=== PATIENT | female | born 1945 | race Caucasian/White ===

== ENCOUNTER → 2017-08-27 | Outpatient (CLI) | payer MEDICARE, OTHER | LOC: LAB SHORT 11:09 → PLD 11:09 | DX: L82.0 Inflamed seborrheic keratosis (principal) | CPT/HCPCS: 88305 ==

== ENCOUNTER 2018-07-22 11:44 | Day surgery (SDC) | payer MEDICARE, OTHER ==
[~2018-07-22] VITALS: Ht 165.1 cm; Wt 66.3 kg
--- NOTE | 2018-07-22 16:05 | NUR ---
07/22/18 1605 Tamiko Armstrong LATE ENTRY: TOWARDS THE END OF THE CASE ORSC.FLL CAME TO RELIEVE ME. WHILE I WAS ATTEMPTING TO LOG OUT OF THE COMPUTER AFTER GIVING REPORT, MY SEDATION RECORD WAS DELETED AND COULDNT BE RECOVERED. THIS IS AN ACCOUNT OF THE DOSING. THE SEDATION RECORD WILL ONLY SHOW THE LAST FEW MINUTES OF THE CASE ENTERED BY ORSC.FLL PATIENT HAD BEEN BROUGHT BACK TO THE ENDO SUITE, CONNECTED TO ROUTINE MONITORS AND O2. ONCE A GOOD SET OF VS WERE OBTAINED NURSE SEDATION PROVIDED BY ME STARTED AT 1321. PATIENT RECIEVED IV PROPOFOL 40MG, THEN 40 MG, THEN 20 MG. EACH DOSE ONE MINUTE APART. VS MAINTAINED AND PROCEDURE HAD BEGUN AT 1325. PATIENT WAS GIVEN 20MG DOSING EVERY MINUTE TO A MINUTE AND A HALF UNTIL ADEQUATE SEDATION WAS MAINTAINED AND THEN I HAD REDUCED MY DOSING TO 10MG EVERY 1 MINUTE. PATIENTS HEART RATE HAD DROPPED TO BETWEEN 42-49 BPM AND PHYSICIAN WAS NOTIFIED. PER MD 0.2MG OF ROBINOL WAS GIVEN. BP MAINTAINED AND ONCE WE HAD MADE IT PAST THE TWISTY PART OF THE COLON, PATIENTS HEART RATE WAS BACK UP TO BASELINE. PT CONTINUED TO DO WELL WITH 10MG EVERY 1 MINUTE AND WHEN ORSC.FLL HAD COME TO RELIEVE ME I HAD GIVEN A TOTAL OF 370MG OF IV PROPOFOL. ORSC.FLL HAD GIVEN ANOTHER 40MG OF PROPOFOL BEFORE THE PROCEDURE ENDED FOR A TOTAL OF 410MG OF IV PROPOFOL. IT WAS REPORTED BACK TO ME THAT THE PATIENT HAD DONE WELL WITHOUT COMPLAINT.
== END 2018-07-22 14:30 | disposition home or self-care (01) ==
LOC: ORSCSDS 11:44
PROVIDERS: Surgery
PROC: 0DBM8ZX Excision of Descending Colon, Via Natural or Artificial Opening Endoscopic, Diagnostic (ICD-10-PCS; principal; 2018-07-22 13:00)
PROC: 0DBN8ZX Excision of Sigmoid Colon, Via Natural or Artificial Opening Endoscopic, Diagnostic (ICD-10-PCS; principal; 2018-07-22 13:00)
PROC: 0DBP8ZX Excision of Rectum, Via Natural or Artificial Opening Endoscopic, Diagnostic (ICD-10-PCS; principal; 2018-07-22 13:00)
DX: Z12.11 Encounter for screening for malignant neoplasm of colon (principal); D12.5 Benign neoplasm of sigmoid colon; K62.1 Rectal polyp; K57.30 Diverticulosis of large intestine without perforation or abscess without bleeding; Z87.891 Personal history of nicotine dependence
CPT/HCPCS: 88305; J7120

== ENCOUNTER → 2020-10-25 | Outpatient (CLI) | payer MEDICARE, OTHER | END | disposition home or self-care (01) | LOC: LAB 08:37 → LAB SHORT 08:37 | DX: D48.5 Neoplasm of uncertain behavior of skin (principal) | CPT/HCPCS: 88305 ==

== ENCOUNTER 2021-12-21 06:42 | Day surgery (SDC) | payer MEDICARE, OTHER ==
[~2021-12-21] VITALS: Ht 165.1 cm; Wt 65.0 kg
--- NOTE | 2021-12-21 07:06 | NUR ---
12/21/21 0706 KANDACE HENNESSY @ 0656 BETTE @ 0685
== END 2021-12-21 08:38 | disposition home or self-care (01) ==
LOC: ORSCSDS 06:42
PROVIDERS: Ophthalmology
PROC: 08RJ3JZ Replacement of Right Lens with Synthetic Substitute, Percutaneous Approach (ICD-10-PCS; principal; 2021-12-21 08:00)
DX: H25.13 Age-related nuclear cataract, bilateral (principal); H52.201 Unspecified astigmatism, right eye; H43.813 Vitreous degeneration, bilateral; H04.123 Dry eye syndrome of bilateral lacrimal glands
CPT/HCPCS: J2001; J2250; J3010; J3301; J7040; V2632

== ENCOUNTER 2022-01-11 06:18 | Day surgery (SDC) | payer MEDICARE, OTHER ==
[~2022-01-11] VITALS: Ht 165.1 cm; Wt 64.7 kg
--- NOTE | 2022-01-11 06:33 | NUR ---
01/11/22 0633 Saumya Jin LEFT EYE @ 0630 SHANNON LEFT EYE @ 0631 BY [facility].MES
== END 2022-01-11 08:25 | disposition home or self-care (01) ==
LOC: ORSCSDS 06:18
PROVIDERS: Ophthalmology
PROC: 08RK3JZ Replacement of Left Lens with Synthetic Substitute, Percutaneous Approach (ICD-10-PCS; principal; 2022-01-11 07:30)
DX: H25.12 Age-related nuclear cataract, left eye (principal); H52.202 Unspecified astigmatism, left eye
CPT/HCPCS: J2001; J2250; J3010; J3301; V2632